=== PATIENT | male | born 1990 | race Caucasian/White ===

== ENCOUNTER 2017-05-31 16:45 | Outpatient (CLI) | payer BC, OTHER | END 2017-05-31 17:15 | disposition home or self-care (01) | LOC: SLEEP 16:45 | PROVIDERS: ATTEND Nurse Practitioner | DX: G47.10 Hypersomnia, unspecified (principal); R06.83 Snoring ==

== ENCOUNTER 2019-12-23 15:23 | Emergency (ER) | payer OTHER ==
[~2019-12-23] VITALS: Ht 172.1 cm; Wt 97.7 kg
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
--- NOTE | 2019-12-23 16:01 | NUR ---
UPDATE TO DAYAMI
--- NOTE | 2019-12-23 16:24 | Diagnostic Imaging Report ---
PATIENT HISTORY: Left lateral rib pain and pleurodynia. TECHNIQUE: Two views of the chest. COMPARISON: None. FINDINGS: The lung volumes are normal. No focal consolidation is seen. No large pleural effusion or pneumothorax is seen. The cardiomediastinal silhouette is normal in size and contour. No acute osseous abnormality is seen. IMPRESSION: No acute pulmonary abnormality seen. No displaced rib fractures seen. Dictated by: Dictated on workstation # [id number]
[2019-12-23 16:25] VITALS: BP 136/81
--- NOTE | 2019-12-23 16:25 | NUR ---
GIVEN UPDATE ABOUT DISCARGE PLAN
== END 2019-12-23 16:25 | disposition home or self-care (01) ==
LOC: EDUNIT# 15:23 → ER 15:24
DX: S60.212A Contusion of left wrist, initial encounter (principal); R07.89 Other chest pain; Z82.49 Family history of ischemic heart disease and other diseases of the circulatory system; V59.9XXA Occupant (driver) (passenger) of pick-up truck or van injured in unspecified traffic accident, initial encounter
CPT/HCPCS: 71046